=== PATIENT | male | born 1930 | race Caucasian/White ===

== ENCOUNTER 2017-03-25 18:55 | Inpatient (IN) | payer MEDICARE ==
[~2017-03-25] VITALS: Ht 182.9 cm; Wt 107.4 kg
--- NOTE | ~2017-03-25 | ER ---
[facility] 86 Y [address] ROOM: [address] [address] LOCATION: [facility] ADMIT DATE: 03/25/2017 ER/Outpatient Report DISCHARGE DATE: FAMILY PHYSICIAN: Jaun Gonzales MD ATTENDING PHYSICIAN: ROMMEL DAVISON V Time of Arrival: 1856 hours. Time of Exam: 1856 hours. CHIEF COMPLAINT: Right femur pain. HISTORY OF PRESENT ILLNESS: The patient arrived per [place] EMT, mutually aided with [facility]. The patient was at home, states he lost his balance and fell, was a ground-level fall. Did not hit his head. Did not have any loss of consciousness. He was not feeling dizzy or lightheaded prior to the incident. Did not have any chest pain before or afterwards. As a result of the fall, he developed pain in the right femur area. When [facility] met up with [place], they did start an IV and gave the patient fentanyl for the pain and a femur traction splint was applied. ALLERGIES: PENICILLIN. CURRENT MEDICATIONS: On his chart and reviewed by me. PAST MEDICAL HISTORY: Extensive. Spinal stenosis, hypertension, diabetes, and coronary artery disease. PAST SURGERIES: Include coronary artery bypass graft of 3 vessels, bilateral hip replacements, L2-S1 surgery, and the patient has had right big toe amputated. SOCIAL HISTORY: He lives at home with his . Denies use of drugs, alcohol, or tobacco. REVIEW OF SYSTEMS: All negative other than those mentioned in the HPI. PHYSICAL EXAMINATION: VITAL SIGNS: He weighed 109 kg. Blood pressure is 154/79, pulse of 84, respirations 16, temperature of 97 tympanic, and O2 saturation was 94% on room [facility]: [facility] AGE[facility] 86 Y [address] ROOM: [address] [address] LOCATION: [facility] ADMIT DATE: 03/25/2017 ER/Outpatient Report DISCHARGE DATE: FAMILY PHYSICIAN: Jaun Gonzales MD ATTENDING PHYSICIAN: ROMMEL DAVISON V air. GENERAL: He is awake, alert, very hard of hearing, but answers questions appropriately. Oriented x4. HEENT: Pupils are reactive to light. Extraocular movement is intact. NECK: Supple. No lymphadenopathy. LUNGS: Lung sounds are clear throughout. HEART: Regular rate and rhythm. ABDOMEN: Soft and nondistended. Bowel sounds are present. EXTREMITIES: Right foot is warm. Positive pedal pulses. No deformity of the leg is noted. Traction remains in place. LABORATORY DATA: Lab work was done. CBC is within normal limits. Chem panel is within normal limits. LABORATORY DATA AND X-RAYS: X-ray was done, the patient has a comminuted displaced femur fracture that is below the greater trochanter that goes past the tip of the prosthesis. EKG was completed that shows paced rhythm. Chest x-ray was completed, no acute abnormality seen. Family states that Dr. Merlos repaired the hip fractures before. Dr. Frazier is on-call, he was contacted, orders were obtained. The patient is to be admitted. Dr. Davison was contacted. IMPRESSION: Right femur fracture. PLAN: The patient will be placed inpatient for care by Dr. Davison and Dr. Merlos[facility]. The patient and family are aware of plan of care. BURTON BROWN APRN FOR MD HARRISON MURRY/lakeisha /[id number] d: 03/25/17 2331 t: 04/04/17 0931, OUTPATIENT REPORT
--- NOTE | ~2017-03-25 | OR ---
PATIENT'S NAME: FRANCE KINGSLEY [facility] AGE: 86 Y [address] ROOM: [address] [address] LOCATION: [facility] ADMIT DATE: 03/25/2017 OR/Procedure Report DISCHARGE DATE: FAMILY PHYSICIAN: Jaun Gonzales MD ATTENDING PHYSICIAN: ROMMEL DAVISON V SURGEON: Aime Merlos MD SUPERVISOR DRYING: ADEEL Chavez. DATE OF PROCEDURE: 03/26/2017 PREOPERATIVE DIAGNOSIS: Periprosthetic right femur fracture around a total hip replacement. POSTOPERATIVE DIAGNOSIS: Periprosthetic right femur fracture around a total hip replacement. OPERATION PERFORMED: ORIF. ANESTHESIA: General ET tube. INDICATIONS: This is an 86-year-old male who fell today sustaining a fracture around the stem of his noncemented Sulzer right total hip replacement. DESCRIPTION OF PROCEDURE: The patient was brought to the operating room, and when a satisfactory general anesthesia had been established, he was transferred to the operating table and placed on his left side with his right side up. The right lower extremity and hip and hemipelvis were prepped and draped in an aseptic manner. The incision from his hip replacement was used to start the incision, beginning at the palpated greater trochanter and then carried distally down about the proximal half at least of the thigh. The incision was carried down through subcutaneous fat. The fascia miri was divided in line with the skin incision and the vastus lateralis exposed. It was split and retracted anteriorly and posteriorly to allow access to the fracture. The fracture was exposed and there was a butterfly fragment and distal fragment. The distal fragment was reduced back around the end of the stem of femoral prosthesis with traction. The fracture fragments were then held with Verbrugge clamps and provisional fixation with 1 mm cables was performed. A 12-hole trochanteric hook plate was then positioned on the lateral aspect of the femur. It was pulled down and it was reduced, sinking the hooks into the greater trochanter using the 4.5 cortical screw and that appeared to seat the hook nicely. A locking screw was then placed and one of the proximal two screw holes, getting one cortex and one in greater trochanter. Distally, a large cable was placed around the distal end of the fracture and around the plate. This was tightened down nicely and crimped. The distal four screw holes were then drilled, measured, and filled with 4.0 locking screws. Proximally another cable was placed around the lesser PATIENT'S NAME: FRANCE KINGSLEY [facility] AGE: 86 Y [address] ROOM: [address] [address] LOCATION: [facility] ADMIT DATE: 03/25/2017 OR/Procedure Report DISCHARGE DATE: FAMILY PHYSICIAN: Jaun Gonzales MD ATTENDING PHYSICIAN: ROMMEL DAVISON V trochanter and it was tight and crimped and cut. Proximal to the butterfly fragment, it was possible to get one more unicortical screw and this was drilled, measured, and filled with a 4.5 cortical screw. The 4.5 screw in the slot of the hook plate was then removed to allow placement of the large unicortical locking cannulated screw. Position of the implants was then checked in multiple projections with the C-arm and accepted. The wound was then irrigated copiously with saline and closed in layers using a running #1 Vicryl for the vastus lateralis fascia, running #1 Vicryl for the fascia miri and fascia of the gluteus melecio. The remainder of the closure was done by ADEEL Sánchez; closed subcutaneous fat with a running 2-0 Vicryl and the skin with skin marko. Dressings were applied. The patient was awakened and sent to the recovery area, having tolerated the procedure well. MD JADYN ARCEO/lakeisha /[id number] d: 03/27/17 0121 t: 03/29/17 1649, OPERATIVE SUMMARY
--- NOTE | ~2017-03-25 | HP ---
PATIENT'S NAME: TEETEE [facility] AGE: 86 Y [address] ROOM: [id number] [place], [place] [address] LOCATION: [facility] ADMIT DATE: 03/25/2017 History & Physical DISCHARGE DATE: FAMILY PHYSICIAN: Jaun Gonzales MD ATTENDING PHYSICIAN: ROMMEL DAVISON V DATE OF SERVICE: CHIEF COMPLAINT: Periprosthetic fracture, right hip. HISTORY: This 86-year-old male lives at home with his . He fell at home yesterday and cannot describe what caused it. He does get off-balance. He was reaching for his walker after coming out of the bathroom. He was unable to move due to severe pain and was brought to [facility] by ambulance, where x-rays demonstrated a periprosthetic fracture about the femoral stem of his right total hip arthroplasty. He denies having any problems with the hip replacement, which was done about 3 years ago. It has been relatively pain- free and allowed him to move better. He does ambulate with a walker, but was not using a walker at the time of his fall. He was reaching for it. Denies blackout spells, dizziness, headaches, or blurred vision. PAST MEDICAL HISTORY: Insulin-dependent diabetes, diabetic neuropathy, diabetic retinopathy, transmetatarsal amputation, severe spinal stenosis with history of lumbar spine fusion. MEDICATIONS: 1. NovoLog 70/30. 2. Carvedilol. 3. Ultram. 4. Lisinopril. FAMILY HISTORY: Positive for high blood pressure. SOCIAL HISTORY: No alcohol or smoking. Lives with his . ALLERGIES: PENICILLIN CAUSES HIVES. PAST SURGICAL HISTORY: Right total hip 3 years ago, doing well, status post lumbar spine PATIENT'S NAME: EMRYBETTE [facility] AGE: 86 Y [address] ROOM: [id number] [place], [place] [address] LOCATION: [facility] ADMIT DATE: 03/25/2017 History & Physical DISCHARGE DATE: FAMILY PHYSICIAN: Jaun Gonzales MD ATTENDING PHYSICIAN: ROMMEL DAVISON V decompression and fusion couple years ago with some improvement. He still has significant back pain. REVIEW OF SYSTEMS: No blackout spells, dizziness, headaches, or blurred vision. No nausea, vomiting, diarrhea, or constipation. No dysuria, hematuria, hesitancy, or incontinence. 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 He denies visual or auditory hallucinations. No skin changes. No weight changes. No malaise or fevers. PHYSICAL EXAMINATION: GENERAL: He is awake, alert, and oriented x3. Mood and affect appropriate. Moderate pain, right hip. VITAL SIGNS: Blood pressure 134/70, pulse 55, O2 saturations 96% on room air, respirations 16, temperature 98. HEENT: Atraumatic and normocephalic. PERRL. EOMI. TMs clear. Throat clear. NECK: Supple. CHEST: Clear to auscultation. HEART: Regular rhythm. ABDOMEN: Soft, nontender without masses. SPINE: Well-healed scar, mild lumbar spine tenderness. NEUROLOGICAL: Sensation and motor function intact both lower extremities. Pulse is good. Reflex is equal. He does not appear excessively overweight. IMPRESSION: 1. Periprosthetic fracture, right hip from fall at home. 2. Unstable gait. Uses walker. 3. Insulin-dependent diabetes mellitus. 4. Spinal stenosis. 5. Status post spine surgery. 6. Status post right total hip. 7. Diabetic neuropathy. 8. Diabetic retinopathy. 9. Status post transmetatarsal amputation. 10. Insulin-dependent diabetes mellitus. PLAN: Preoperative medical clearance. ORIF, right proximal femur fracture. I discussed details of the surgical procedure, risks, benefits, and alternatives emphasizing anesthetic, neurovascular, infectious complications, explaining Dr. Merlos would be doing the surgery. The patient and family understand and desire to proceed with surgery as planned. Both the patient and family wished him to be a DNR. This has been noted in the chart. PATIENT'S NAME: FRANCE KINGSLEY [facility] AGE: 86 Y [address] ROOM: [place] [address] LOCATION: [facility] ADMIT DATE: 03/25/2017 History & Physical DISCHARGE DATE: FAMILY PHYSICIAN: Jaun Gonzales MD ATTENDING PHYSICIAN: ROMMEL DAVISON V MD FERNANDO MONTANEZ/modl /[id number] D: 911 T: 944 HISTORY & PHYSICAL
--- NOTE | ~2017-03-25 | DS ---
PATIENT'S NAME: FRANCE KINGSLEY [facility] AGE: 86 Y [address] ROOM: [address] [address] LOCATION: [facility] ADMIT DATE: 03/25/2017 Discharge Summary DISCHARGE DATE: 03/29/2017 FAMILY PHYSICIAN: Jaun Gonzales MD ATTENDING PHYSICIAN: Marty Martinez V PRIMARY DIAGNOSES: 1. Right femur periprosthetic fracture. 2. Chronic conditions include paroxysmal atrial fibrillation. 3. Insulin-dependent diabetes. 4. Diabetic neuropathy. 5. Essential hypertension. 6. Obesity. PRINCIPAL PROCEDURE: Done for the patient includes open reduction and internal fixation of the right femur. LABORATORY DATA: H and H on admission were 13.6 and 42.0, prior to discharge were 8.0 and 24.4. WBC was stable throughout the hospital stay. Platelet was 145. Sodium was also stable throughout the hospital stay, prior to discharge was 138. Creatinine was stable throughout the hospital stay, was 1.0 on discharge. Bicarb was stable at 27 upon discharge. Magnesium was 1.9. RADIOLOGY: X-ray of the pelvis showed periprosthetic fracture at the right proximal femoral shaft. No pelvic fracture. X-ray of the femur showed periprosthetic fracture at the right proximal femoral shaft, no pelvic fracture. Chest x-ray showed no evidence of acute cardiopulmonary disease. HOSPITAL COURSE: For history of present illness, please take a look at the H and P, which was done by Dr. Martinez. The patient was admitted to Orthopedic Floor. Cardiology consult was called for cardiac clearance. 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 By the next day, the surgery was done. Procedure was well tolerated by the patient without intraoperative or postoperative complications. First day postop, the patient was stable, though a little bit drowsy, so his narcotics were cut down. By the second day postop, the patient was back at his baseline mentation ochoa. Pain was controlled and he started physical therapy. His blood sugars were relatively controlled. Blood pressure remained stable. His paroxysmal atrial fibrillation was rate controlled. On the day of discharge, the patient's vital signs were stable and was discharged to the longterm at [place]. MEDICATIONS ON DISCHARGE: 1. Coreg 3.125 mg p.o. twice daily, dose change. 2. Gabapentin 100 mg p.o. twice daily. PATIENT'S NAME: FRANCE KINGSLEY [facility] AGE: 86 Y [address] ROOM: [address] [address] LOCATION: [facility] ADMIT DATE: 03/25/2017 Discharge Summary DISCHARGE DATE: 03/29/2017 FAMILY PHYSICIAN: Jaun Gonzales MD ATTENDING PHYSICIAN: Marty Martinez V 3. NPH insulin 22 units subcu twice daily. 4. Colace 100 mg p.o. twice daily. 5. Lovenox 40 mg subcu till April 05. 6. Famotidine 20 mg p.o. daily. 7. Multivitamin 1 tablet p.o. daily. 8. Tylenol 1 gram p.o. q.6 hours p.r.n. 9. Magnesium oxide 400 mg p.o. daily. 10. MiraLax 17 grams p.o. daily. 11. Artificial Tears 2 drops each eye, ophthalmic. 12. Colace 100 mg rectally as needed p.r.n. 13. Tramadol 50 mg p.o. twice daily. 14. Milk of magnesia 30 mL p.o. as needed p.r.n. 15. Calcium and D3 one tablet p.o. daily p.r.n. MD NYA VENTURA/lakeisha /[id number] d: 03/30/17 0100 t: 03/31/17 1620, DISCHARGE SUMMARY
--- NOTE | ~2017-03-25 | CON ---
PATIENT'S NAME: MERYBETTE [facility] AGE: 86 Y [address] ROOM: [address] [address] LOCATION: [facility] ADMIT DATE: 03/25/2017 Consultation DISCHARGE DATE: FAMILY PHYSICIAN: Jaun Gonzales MD ATTENDING PHYSICIAN: ROMMEL DAVISON V DATE OF CONSULTATION: 03/26/2017 REFERRING PHYSICIAN: Aime Merlos MD REASON FOR CARDIOLOGY CONSULT: Preoperative cardiovascular evaluation. HISTORY OF PRESENT ILLNESS: This is an 86-year-old male, admitted with a right femur fracture after a fall. This consult requested due to a need for cardiac evaluation prior to surgery, due to a history of coronary artery bypass grafting in 1999 as well as a permanent pacemaker implantation as well as a recent generator exchange. The patient denies any complaints of chest pain, shortness of breath, palpitations, presyncope, or syncope. He saw his regular power transformer repair supervisor, Dr. Guillaume, about 6 months ago and was noted to have some questionable ventricular tachycardia on his pacemaker interrogation. The patient denies any loss of consciousness related to his fall. He states he got his walker stuck and subsequently fell due to that. PAST MEDICAL HISTORY: 1. Coronary artery disease. 2. Diabetes mellitus. 3. Diabetic neuropathy. 4. Diabetic retinopathy. 5. History of spinal stenosis with fusion. 6. Transmetatarsal amputation. PAST SURGICAL HISTORY: 1. Coronary artery bypass grafting x4 vessels in 1999. 2. Permanent pacemaker implantation. 3. Permanent pacemaker generator exchange. 4. Bilateral hip replacement. FAMILY HISTORY: The patient's mother due to myocardial infarction. He has multiple siblings with heart issues and diabetes. SOCIAL HISTORY: The patient denies ever using tobacco. Also denies alcohol or illicit drug use. PATIENT'S NAME: [facility] AGE: 86 Y [address] ROOM: [address] [address] LOCATION: [facility] ADMIT DATE: 03/25/2017 Consultation DISCHARGE DATE: FAMILY PHYSICIAN: Jaun Gonzales MD ATTENDING PHYSICIAN: ROMMEL DAVISON V CURRENT MEDICATIONS: 1. Morphine METAL MINER BLASTING for pain control. 2. Coreg 3.125 mg p.o. twice daily. 3. Neurontin 100 mg p.o. twice daily. 4. Os-Jose Rafael plus D 500 mg p.o. daily. 5. Pepcid 20 mg p.o. daily. 6. Multivitamin 1 tablet p.o. daily. 7. NovoLog subcu on a mild sliding scale per q.6 hour Accu-Cheks. MEDICATION ALLERGIES: Penicillin causing hives. REVIEW OF SYSTEMS: Pertinent positive review of systems listed in the HPI. All other review of systems evaluated and negative. PHYSICAL EXAMINATION: VITAL SIGNS: Temperature 97.6, pulse 60, respirations 14, blood pressure 124/56, and O2 saturation 92% on room air. The patient weighs 107.4 kg. SKIN: Dele[place], warm, and dry. EYES: Sclerae clear. No xanthelasma. ENT: Oral mucosa is pink and moist. No jugular venous distention or carotid bruits. CHEST: Respirations are even and unlabored. LUNGS: Clear to auscultation. HEART: Regular rate and rhythm. Normal S1, S2. Does appear to be ventricularly paced on his EKG. ABDOMEN: Soft and nontender. MUSCULOSKELETAL: Equal muscle strength in upper and lower extremities bilaterally against resistance. EXTREMITIES: Peripheral pulses palpable. No clubbing or cyanosis noted. Does have trace lower extremity edema present. PSYCH: Alert and oriented. Mood and affect are appropriate. IMPRESSION AND PLAN: Per Dr. Alanna Brennan: 1. Preoperative cardiac evaluation. 2. Coronary artery disease with a history of coronary artery bypass grafting. No complaints of angina. There are also no acute ST changes on his EKG suggestive of coronary ischemia. He is on a beta-jermain. 3. History of permanent pacemaker. We will interrogate this device for full details of recent electrophysiologic history. 4. Hypertension. The patient is in need of an urgent right femur open reduction and internal PATIENT'S NAME: FRANCE KINGSLEY [facility] AGE: 86 Y [address] ROOM: [address] [address] LOCATION: [facility] ADMIT DATE: 03/25/2017 Consultation DISCHARGE DATE: FAMILY PHYSICIAN: Jaun Gonzales MD ATTENDING PHYSICIAN: ROMMEL DAVISON. He has no clinical evidence of acute coronary syndrome or decompensated congestive heart failure or malignant arrhythmias noted. We will review the most recent records from Dr. Guillaume's visit with him about 6 months ago and once again, we will further evaluate his pacemaker with interrogation. No further cardiac testing required prior to surgery. He will likely be okay to proceed to surgery with a moderate to high risk due to his comorbid conditions. We will continue to monitor, evaluate, and treat as appropriate. Thank you for this consult. Thank you for allowing [facility] to interact in the care of this patient. DARYA HERNANDEZ APRN FOR MD NBA LINDO/lakeisha /[id number] d: 03/26/177 t: 04/01/17 1630, CONSULTATION REPORT
--- NOTE | ~2017-03-25 | CON ---
PATIENT'S NAME: FRANCE KINGSLEY [facility] AGE: 86 Y [address] ROOM: [place] [address] [place]: [facility] [place] DATE: 03/25/2017 Consultation DISCHARGE DATE: FAMILY PHYSICIAN: Jaun Gonzales MD ATTENDING PHYSICIAN: ROMMEL DAVISON V DATE OF CONSULTATION: 03/25/2017 REFERRING PHYSICIAN: Aime Merlos MD CONSULTING PHYSICIAN: Dr. Davison. REASON FOR CONSULTATION: Preoperative optimization. HISTORY OF PRESENT ILLNESS: The patient is an 86-year-old male with past medical history further described below, who has sustained a fall earlier today. The patient is unable to provide me the circumstances of the fall, though it appears that it was mechanical as he denies any prodrome, near syncope, or loss of consciousness associated with this event. He was found to have a periprosthetic right femur fracture upon arriving to the ER. The patient has a complicated cardiac history, not all of which is available to us. He has had a coronary artery bypass graft in 1999. He has had a pacemaker as well as a pacemaker battery change due to an infection in the past. The patient was seen by his primary export traffic department manager, Dr. Guillaume, approximately 6 months ago. At which point, the family tells me that he had either "atrial fibrillation" or "ventricular tachycardia" as well, though they believe it was the "one that is really bad." Apparently, they elected not to do anything at that point. The patient denies any chest pain, though he is not able to exert himself due to spinal stenosis and ambulating with a walker. He denies any shortness of breath, paroxysmal nocturnal dyspnea, or orthopnea. The family does tell me that arrhythmia was found based on the interrogation of the pacemaker. REVIEW OF SYSTEMS: He denies any nausea, vomiting, diarrhea, diaphoresis, or any syncope associated with this episode. All systems have been reviewed and are negative aside from pertinent positives mentioned above. PATIENT'S NAME: FRANCE KINGSLEY [facility] AGE: 86 Y [address] ROOM: [place] [address] LOCATION: [facility] [place] DATE: 03/25/2017 Consultation DISCHARGE DATE: FAMILY PHYSICIAN: Jaun Gonzales MD ATTENDING PHYSICIAN: ROMMEL DAVISON V PAST MEDICAL HISTORY: As described above. In addition, the patient has: 1. Insulin-dependent diabetes. 2. Diabetic neuropathy. 3. Diabetic retinopathy. 4. Transmetatarsal amputation. 5. Severe spinal stenosis with prior fusion. CURRENT MEDICATIONS: 1. NovoLog 70/30. 2. Carvedilol. 3. Ultram. 4. Lisinopril. FAMILY HISTORY: Reviewed and is noncontributory due to advanced age. SOCIAL HISTORY: Negative for any history of ongoing toxic habits. PHYSICAL EXAMINATION: VITAL SIGNS: Blood pressure 134/70, heart rate is 55 to 60, saturating 96% on room air, afebrile, respirations are 16. GENERAL: A well-developed, elderly male, in mild distress due to pain. NEUROLOGIC: Nonfocal. EYES: Show pupils are equal and reactive to light. LYMPHATIC: Shows no cervical lymphadenopathy. ENDOCRINE: Shows no thyromegaly. LUNGS: Clear to auscultation. HEART: Rate is slightly bradycardic and regular. GI: Abdomen is soft, nontender, nondistended. : No costovertebral angle tenderness. VASCULAR: 2+ pedal pulses. MUSCULOSKELETAL: Deferred. SKIN: Warm and dry. PSYCHIATRIC: Appropriate mood, cognition, and affect. IMPRESSION AND RECOMMENDATIONS: 1. This is an 86-year-old male with a periprosthetic hip fracture. At this point, the patient will require further preoperative evaluation due to:. a. Age of his stents. b. Unknown issues with arrhythmia. c. It does not appear that the patient is even on aspirin. d. We will request his records to be sent over from his primary PATIENT'S NAME: FRANCE KINGSLEY [facility] AGE: 86 Y [address] ROOM: [place] [address] LOCATION: [facility] [place] DATE: 03/25/2017 Consultation DISCHARGE DATE: FAMILY PHYSICIAN: Jaun Gonzales MD ATTENDING PHYSICIAN: ROMMEL DAVISON V export traffic department manager's office. We will request for pacemaker to be interrogated to see if his event was at all nonmechanical. We will request a Cardiology evaluation to help optimize the patient. 2. Insulin-dependent diabetes. We will discontinue his 70/30 as he will be kept n.p.o. We will put him on a sliding scale as needed. 3. History of hypertension. We will continue him on his current antihypertensive medications. Additional management will depend on the clinical course and recommendations from Cardiology. Time dedicated to the patient's encounter is 35 minutes. MD CHANDLER ELIZALDE/lakeisha /[id number] d: 03/25/176 t: 04/08/17 2353, CONSULTATION REPORT
[~2017-03-25 18:55] MED LIST changes: -NEURONTIN100 MG PO
[2017-03-25 19:18] LABS: BASOPHIL % 0.3 %; EOSINOPHIL # 0.2 K/uL (0.0-0.5); EOSINOPHIL % 2.2 %; HEMOGLOBIN 13.6 g/dL (11.0-16.0); IMMATURE GRANULOCYTE # 0.1 K/uL (0.0-0.3); IMMATURE GRANULOCYTE % 0.7 %; LYMPHOCYTE # 1.2 K/uL (0.8-4.0); MCH 31.3 pg (27.0-34.0); MCHC 32.4 gm/dL (32.0-36.5); MCV 96.6 fl (83.0-98.0); MONOCYTE # 0.4 K/uL (0.0-1.0); MONOCYTE % 6.2 %; MPV 9.9 fl (9.4-12.4); NEUTROPHIL % 72.6 %; NRBC % 0 /100WBC (0-0.00); PLATELET COUNT 145 K/uL (150-450); RBC 4.35 M/uL (3.50-5.50); RDW-CV 13.2 % (11.9-14.6); WBC 6.9 K/uL (4.0-11.0)
[2017-03-25 19:26] LABS: INR - (THERAPEUTIC) 1.11 (0.92-1.07); PROTIME 11.7 SECONDS (9.8-11.4); PTT 26 SECONDS (25-32)
[2017-03-25 19:33] LABS: ALK PHOS 101 IU/L (33-138); ALT 19 IU/L (12-78); ANION GAP 12.3 (10.0-19.0); AST 20 IU/L (10-40); BLOOD UREA NITROGEN 22 mg/dL (6-24); CALCIUM 8.3 mg/dL (8.5-10.5); CHLORIDE 109 mMol/L (96-110); CO2 27 mMol/L (22-32); ESTIMATED GFR (MDRD EQUATION) > 60; POTASSIUM 4.3 mMol/L (3.7-5.1); SODIUM 144 mMol/L (135-145); TOTAL BILIRUBIN 0.4 mg/dL (0.0-1.5); TOTAL PROTEIN 6.6 g/dL (6.0-8.4)
[2017-03-25] MEDS ORDERED: NEURONTIN100 MG PO (22:11)
[2017-03-25] MEDS ORDERED: ULTRAM50 MG PO (22:11)
[2017-03-27 06:23] LABS: BASOPHIL % 0.1 %; HEMATOCRIT 33.2 % (33.0-50.0); HEMOGLOBIN 10.5 g/dL (11.0-16.0); IMMATURE GRANULOCYTE % 0.3 %; LYMPHOCYTE # 0.9 K/uL (0.8-4.0); LYMPHOCYTE % 9.6 %; MCH 31.5 pg (27.0-34.0); MCHC 31.6 gm/dL (32.0-36.5); MCV 99.7 fl (83.0-98.0); MONOCYTE # 0.8 K/uL (0.0-1.0); MONOCYTE % 8.6 %; MPV 9.7 fl (9.4-12.4); NEUTROPHIL # (ANC) 7.7 K/uL (1.4-9.0); NEUTROPHIL % 81.4 %; NRBC % 0 /100WBC (0-0.00); PLATELET COUNT 118 K/uL (150-450); RBC 3.33 M/uL (3.50-5.50); RDW-CV 13.3 % (11.9-14.6); WBC 9.5 K/uL (4.0-11.0)
[2017-03-27 06:36] LABS: ANION GAP 9.9 (10.0-19.0); BLOOD UREA NITROGEN 23 mg/dL (6-24); CHLORIDE 109 mMol/L (96-110); CO2 28 mMol/L (22-32); CREATININE 1.1 mg/dL (0.6-1.3); ESTIMATED GFR (MDRD EQUATION) > 60; MAGNESIUM 1.8 mg/dL (1.8-2.6); POTASSIUM 4.9 mMol/L (3.7-5.1); SODIUM 142 mMol/L (135-145)
[2017-03-27 06:46] LABS: CALCIUM 7.4 mg/dL (8.5-10.5)
[2017-03-28 05:13] LABS: HEMATOCRIT 26.6 % (33.0-50.0); HEMOGLOBIN 8.6 g/dL (11.0-16.0)
[2017-03-28 05:31] LABS: ANION GAP 9.7 (10.0-19.0); BLOOD UREA NITROGEN 26 mg/dL (6-24); CALCIUM 7.8 mg/dL (8.5-10.5); CHLORIDE 106 mMol/L (96-110); CO2 27 mMol/L (22-32); ESTIMATED GFR (MDRD EQUATION) > 60; MAGNESIUM 1.9 mg/dL (1.8-2.6); POTASSIUM 4.7 mMol/L (3.7-5.1); SODIUM 138 mMol/L (135-145)
[2017-03-29 06:05] LABS: HEMATOCRIT 24.4 % (33.0-50.0)
== END 2017-03-29 09:30 | DRG 481 ==
LOC: GACC 18:55 → GMSU 21:01 → G3N 03-26 16:57
PROVIDERS: Hospitalist; Nurse Practitioner Family; Orthopaedic Surgery; ADMIT Internal Medicine
PROC: 0QS604Z Reposition Right Upper Femur with Internal Fixation Device, Open Approach (ICD-10-PCS; principal; 2017-03-26)
DX: S72.009A Fracture of unspecified part of neck of unspecified femur, initial encounter for closed fracture (principal); I42.9 Cardiomyopathy, unspecified; E11.40 Type 2 diabetes mellitus with diabetic neuropathy, unspecified; M97.01XA Periprosthetic fracture around internal prosthetic right hip joint, initial encounter; W17.89XA Other fall from one level to another, initial encounter; E11.319 Type 2 diabetes mellitus with unspecified diabetic retinopathy without macular edema; I10 Essential (primary) hypertension; I25.10 Atherosclerotic heart disease of native coronary artery without angina pectoris; I48.0 Paroxysmal atrial fibrillation; M48.00 Spinal stenosis, site unspecified; Z66 Do not resuscitate; E66.9 Obesity, unspecified; Z79.4 Long term (current) use of insulin; Z68.32 Body mass index [BMI] 32.0-32.9, adult
CPT/HCPCS: C1713; J1650; J2270; J3010; J7030; J7040

== ENCOUNTER → 2017-03-25 | Outpatient (CLI) | payer MEDICARE ==
[~2017-03-25] MED LIST: ACETAMINOPHEN500 M1 PO; BENGAY/ICY HOT/30 GM TOP; CALCIUM + D3 E1 EACH PO; CIPRO500 MG PO; COLACE100 MG PO; COREG6.25 MG PO; DILAUDID 2MG(HYD2 MG PO; FLEXERIL10 MG PO; FLORASTOR250 MG PO; GLUCOSE4 GM PO; HUMULIN 70100 UNIT/1 SUB-Q; HUMULIN 70100 UNIT/M SUB-Q; KEFLEX500 MG PO; LASIX40 MG PO; MILK OF MA400 MG/5 M PO; NEURONTIN100 MG PO; NORCO 5-325 MG1 TAB PO; NOVOLIN R100 UNIT/1 SUB-Q; PRINIVIL (ZESTR20 MG PO; PROTONIX40 MG PO; REMERON15 MG PO; THERA-VITE W/ B1 TAB PO; TUMS REGULAR ST1 TAB PO; ULTRAM50 MG PO
== END | disposition disaster alternative care site (69) ==
LOC: GAMB 18:17
DX: S79.921A Unspecified injury of right thigh, initial encounter (principal); M79.651 Pain in right thigh; E10.9 Type 1 diabetes mellitus without complications; M54.9 Dorsalgia, unspecified; M79.604 Pain in right leg; I10 Essential (primary) hypertension; Z79.891 Long term (current) use of opiate analgesic; Z79.4 Long term (current) use of insulin; Z79.899 Other long term (current) drug therapy; Z88.0 Allergy status to penicillin
CPT/HCPCS: J3010; J7030

== ENCOUNTER → 2017-04-05 | Outpatient (CLI) | payer OTHER, MEDICARE ==
[~2017-04-05] MED LIST changes: +NEURONTIN100 MG PO
[2017-04-05 17:48] LABS: BILIRUBIN URINE NEGATIVE (NEGATIVE); BLOOD URINE 25 /UL (NEGATIVE); COLOR URINE YELLOW (YELLOW); GLUCOSE URINE NEGATIVE (NEGATIVE); KETONE URINE NEGATIVE (NEGATIVE); LEUKOCYTES URINE 500 /UL (NEGATIVE); NITRITE URINE NEGATIVE (NEGATIVE); PROTEIN URINE 15 mg/dL (NEGATIVE); TURBIDITY URINE 3+ (CLEAR); UROBILINOGEN URINE NORMAL (NORMAL)
[2017-04-05 18:25] LABS: BACTERIA URINE MANY (NEGATIVE)
[2017-04-05 18:26] LABS: WBC URINE 50-100 #/HPF (NEGATIVE)
[2017-04-05 18:29] LABS: RBC URINE 0-2 #/HPF (NEGATIVE)
[2017-04-05 18:30] LABS: WBC CLUMPS URINE MANY (NEGATIVE)
== END ==
LOC: LJOHN2 17:32
PROVIDERS: Family Medicine
DX: N39.0 Urinary tract infection, site not specified (principal)